=== PATIENT | female | born 1985 | race Caucasian/White ===

== ENCOUNTER 2018-12-18 16:51 | Emergency (ER) | payer MEDICAID ==
[~2018-12-18] VITALS: Wt 93.0 kg
[2018-12-18 17:47] VITALS: BP 127/76; PULSE 91; RESP 20
[2018-12-18] MEDS ORDERED: KETOROLAC 60 MG INJ IM STA (19:49)
[2018-12-18] MEDS ORDERED: ACETAMINOPHEN 500 MG TAB PO STA (19:55)
[2018-12-18] MEDS ORDERED: CYCLOBENZAPRINE 10 MG TAB PO ONE (20:00)
[2018-12-18] MEDS ORDERED: DEXAMETHASONE 10 MG/ML 1 ML INJ IM ONE (20:00)
[2018-12-18] MEDS ORDERED: DIPHENHYDRAMINE 25 MG CAP PO ONE (20:00)
[2018-12-18] MEDS ORDERED: DIPH25CA6 PO (20:34)
[2018-12-18] MEDS ORDERED: IBUP800T48 PO (20:34)
[2018-12-18] MEDS ORDERED: CETI10TA19 PO (20:34)
[2018-12-18] MEDS ORDERED: CYCL10TA7 PO (20:34)
--- NOTE | 2018-12-18 21:27 | ERD ---
ER Documentation Chief Complaint Chief Complaint GARZON, DIZZINESS, SINUS PRESSURE HPI History of Present Illness: 33-year-old female who denies a past medical history coming in today with complaint of headache, sinus pressure, dizziness when bending head forward, bilateral ear pain, throat discomfort, back pain. Patient reports a recent episode with lots of sneezing weekend. Denies any other associated symptoms. Reports that she has taken some amoxicillin from an old prescription. At home pharmacological/nonpharmacological treatment for symptoms: Denies Denies social concerns; Denies recent foreign travel ROS All systems reviewed and are negative except as per history of present illness. Medications Home Meds Active Scripts Diphenhydramine Hcl* (Diphenhydramine Hcl*) 25 Mg Capsule, 25 MG PO Q6 PRN for SINUSITIS/MUCUS/RUNNY NOSE, #30 CAP Prov:ALAYNA SALAS V [employer] 12/18/18 Cetirizine Hcl* (Cetirizine Hcl*) 10 Mg Tablet, 10 MG PO DAILY for ALLERGIES/SINUSITIS/COUGH, #30 TAB Prov:ALAYNA SALAS [employer] 12/18/18 Cyclobenzaprine Hcl* (Cyclobenzaprine Hcl*) 10 Mg Tablet, 10 MG PO TID for MUSCLE SPASM/MUSCLE PAIN, #15 TAB Prov:ALAYNA SALAS [employer] 12/18/18 Ibuprofen* (Motrin*) 800 Mg Tab, 800 MG PO Q6H PRN for PAIN AND/OR INFLAMMATION, #30 TAB Prov:ALAYNA SALAS V [employer] 12/18/18 Allergies Allergies: Coded Allergies: No Known Allergy (Verified Allergy, Unknown, 09/11/06) PMhx/Soc Medical and Surgical Hx: pt denies Medical Hx, pt denies Surgical Hx Hx Alcohol Use: No Hx Substance Use: No Hx Tobacco Use: No FmHx Family History: No diabetes, No coronary disease Physical Exam Vitals Vital Signs Date Temp Pulse Resp B/P (MAP) Pulse Ox O2 O2 Flow FiO2 Time Delivery Rate 12/18/18 99.0 91 20 127/76 97 17:47 (93) Physical Exam Const: No acute distress, afebrile Head: Atraumatic, tenderness to palpation to frontal and maxillary sinuses Eyes: Normal Conjunctiva ENT: Normal External Ears, Nose and Mouth. Neck: Full range of motion. No meningismus. Resp: Clear to auscultation bilaterally Cardio: Regular rate and rhythm, no murmurs Abd: Soft, non tender, non distended. No guarding, no masses, no rigidity Skin: No petechiae or rashes Back: No midline or flank tenderness; tenderness to palpation to right thoracic muscle as well as trapezius muscles bilaterally Ext: No cyanosis, or edema Neur: Awake and alert x3, speaking in clear sentences, no focal deficits or facial asymmetry Psych: Normal Mood and Affect Results 24 hrs Laboratory Tests Test 12/18/18 19:13 POC Beta HCG, Qualitative NEGATIVE Current Medications Medications Dose Sig/Elena Start Time Status Last (Trade) Ordered Route PRN Stop Time Admin Dose Reason Admin Ketorolac 60 mg ONCE STAT 12/18/18 DC 12/18/18 Tromethamine IM 19:49 12/18/18 19:59 (Toradol) 19:50 10 mg ONCE ONCE 12/18/18 DC 12/18/18 Dexamethasone IM 20:00 12/18/18 19:59 (Decadron) 20:01 10 mg ONCE ONCE 12/18/18 DC 12/18/18 Cyclobenzapri PO 20:00 12/18/18 19:59 ne HCl 20:01 (Flexeril) 25 mg ONCE ONCE 12/18/18 DC 12/18/18 Diphenhydrami PO 20:00 12/18/18 19:58 ne HCl 20:01 (Benadryl) 1,000 mg ONCE STAT 12/18/18 DC 12/18/18 Acetaminophen PO 19:55 12/18/18 20:10 (Tylenol 19:56 Tab) Procedures/MDM ED COURSE: ED course includes a thorough examination and history. The patient was stable throughout ED course. I kept the patient and/or family informed of laboratory and diagnostic imaging results throughout the ED course. LABS: Urine negative. MEDICATIONS GIVEN IN ER: Ketorolac, dexamethasone, cyclobenzaprine for muscle spasm complaint Diphenhydramine, ketorolac, dexamethasone for sinusitis-like symptoms patient tolerated medication well with no adverse reactions. Patient reported improvement in pain. DIAGNOSTIC IMAGING: None PROCEDURES: None. MEDICAL DECISION MAKING: Low suspicion for life-threatening medical emergency. Low suspicion for infectious process that requires antibiotics at this time. Low suspicion for neurological emergency. Otherwise healthy patient presenting with constellation of symptoms likely representing uncomplicated sinusitis/muscle spasm allergic rhinitis/ as characterized by history, physical exam findings, lab findings. Patient reassessment @ 2034: Patient hemodynamically stable. No respiratory distress, otherwise relatively well appearing and nontoxic. Disposition given. Patient educated on diagnoses, prescriptions, follow-up care, return precautions. Strict return precautions given for worsening condition; questions answered discharge. Patient verbalizes understanding of discharge instructions. PRESCRIPTIONS FOR HOME: Diphenhydramine, cetirizine for sinusitis; education on saline irrigation as well Cyclobenzaprine and ibuprofen for muscle spasm DISPOSITION: DISCHARGE At this time, patient is stable for discharge and outpatient management. I have instructed the patient to follow-up with his/her primary care physician in 1-2 days. I have discussed with the patient the possibility of needing to see a specialist for further workup and imaging studies if symptoms persist. I have instructed the patient to promptly return to the ER for any new or worsening symptoms including increased pain, fever, nausea, vomiting, weakness or LOC. The patient and/or family expressed understanding of and agreement with this plan. All questions were answered. Home care instructions were provided. DISCLAIMER: Inadvertent spelling and grammatical errors are likely due to EHR/dictation software use and do not reflect on the overall quality of patient care. Also, please note that the electronic time recorded on this note does not necessarily reflect the actual time of the patient encounter. Departure Diagnosis: Primary Impression: Allergic rhinitis Allergic rhinitis trigger: unspecified Allergic rhinitis seasonality: unspecified Qualified Codes: J30.9 - Allergic rhinitis, unspecified Additional Impressions: Sinusitis Sinusitis location: unspecified location Chronicity: acute Recurrence: not specified as recurrent Qualified Codes: J01.90 - Acute sinusitis, unspecified Back muscle spasm Condition: Stable Patient Instructions: Allergic Rhinitis, Sinusitis, No Abx Referrals: [facility] YOU HAVE RECEIVED A MEDICAL SCREENING EXAM AND THE RESULTS INDICATE THAT YOU DO NOT HAVE A CONDITION THAT REQUIRES URGENT TREATMENT IN THE EMERGENCY DEPARTMENT. FURTHER EVALUATION AND TREATMENT OF YOUR CONDITION CAN WAIT UNTIL YOU ARE SEEN IN YOUR DOCTORS OFFICE WITHIN THE NEXT 1-2 DAYS. IT IS YOUR RESPONSIBILITY TO MAKE AN APPOINTMENT FOR FOLOW-UP CARE. IF YOU HAVE A PRIMARY DOCTOR --you should call your primary doctor and schedule an appointment IF YOU DO NOT HAVE A PRIMARY DOCTOR YOU CAN CALL OUR PHYSICIAN REFERRAL HOTLINE AT IF YOU CAN NOT AFFORD TO SEE A PHYSICIAN YOU CAN CHOSE FROM THE FOLLOWING [facility] [address] [facility] [address] [facility] [address] [facility] [address] [facility] [facility] [address] [facility] [employer] [facility] [address] [facility] [facility] YOU HAVE RECEIVED A MEDICAL SCREENING EXAM AND THE RESULTS INDICATE THAT YOU DO NOT HAVE A CONDITION THAT REQUIRES URGENT TREATMENT IN THE EMERGENCY DEPARTMENT. FURTHER EVALUATION AND TREATMENT OF YOUR CONDITION CAN WAIT UNTIL YOU ARE SEEN IN YOUR DOCTORS OFFICE WITHIN THE NEXT 1-2 DAYS. IT IS YOUR RESPONSIBILITY TO MAKE AN APPOINTMENT FOR FOLOW-UP CARE. IF YOU HAVE A PRIMARY DOCTOR --you should call your primary doctor and schedule and appointment IF YOU DO NOT HAVE A PRIMARY DOCTOR YOU CAN CALL OUR PHYSICIAN REFERRAL HOTLINE AT . IF YOU CAN NOT AFFORD TO SEE A PHYSICIAN YOU CAN CHOSE FROM THE FOLLOWING [facility] INSTITUTIONS: [facility] [address] [place] [address] [facility] [address] [place] [address] [facility] [address] [place] [address] Additional Instructions: Thank you very much for allowing us to participate in your care. Your health and safety is our top priority at [facility]. It is important to read all discharge instructions and education provided in your discharge packet. Call your primary care doctor TOMORROW for an appointment during the next 2-4 days and bring all the information and medications prescribed. Have prescriptions filled and follow precisely the directions on the label. -Cetirizine Is an antihistamine that should not cause drowsiness; take this medication every day for allergy-like symptoms/cough/runny nose. -Diphenhydramine is an antihistamine that MAY cause drowsiness; take this medication every day for allergy-like symptoms/cough/runny nose. Diphenhydramine can also help dry up mucus secretions. --Ibuprofen is a medication that will help with pain/inflammation. At the dosage of 600 to 800 mg, this will help with inflammation/swelling. Take this medication as prescribed. --Cyclobenzaprine as a muscle relaxer; take this medication daily as prescribed for the next week to help with your muscle spasm. Do not operate heavy machinery while taking this medication; It may make you drowsy. If the symptoms get worse and your provider is unavailable, return to the Emergency Department immediately. ALAYNA SALAS NP Dec 18, 2018 21:27
== END 2018-12-18 20:42 | disposition home or self-care (01) ==
LOC: FTE 16:51
DX: J30.9 Allergic rhinitis, unspecified (principal); J01.90 Acute sinusitis, unspecified; M62.830 Muscle spasm of back
CPT/HCPCS: 81025; 96372; J1100; J1885; Z7502; Z7610